=== PATIENT | male | born 1990 | race Asian ===

== ENCOUNTER 2021-09-05 13:38 | Emergency (ER) | payer MEDICAID ==
[~2021-09-05] VITALS: Ht 188 cm; Wt 93.0 kg
[2021-09-05 13:39] VITALS: BP 113/84
[2021-09-05] MEDS ORDERED: NALO4SPR NS (16:43)
[2021-09-05 16:52] VITALS: BP 112/68
== END 2021-09-05 16:52 | disposition home or self-care (01) ==
LOC: MED 13:38
DX: T40.2X1A Poisoning by other opioids, accidental (unintentional), initial encounter (principal); R41.82 Altered mental status, unspecified; Y92.89 Other specified places as the place of occurrence of the external cause
CPT/HCPCS: 81002; 99283